=== PATIENT | female | born 1970 | race African-American/Black ===

== ENCOUNTER 2018-09-08 15:34 | Emergency (ER) | payer SELFPAY ==
[~2018-09-08] VITALS: Ht 165.1 cm; Wt 63.5 kg
[~2018-09-08 15:34] MED LIST: ALBUTEROL SULF8.5 GM INH; AMOXICILLIN500 MG ORAL; AZITHROMYCIN250 MG ORAL; CIPROFLOXACIN500 M2 ORAL; NKM; PREDNISONE20 MG ORAL; PROMETHAZINE-C118 M1 ORAL; RANITIDINE HCL150 MG ORAL; ROBITUSSIN COU118 M4 PO
[2018-09-08] MEDS ORDERED: Acetaminophen 500mg (ES) tab ORAL ONE (15:45)
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
--- NOTE | 2018-09-08 15:55 | NUR ---
ED Nurse Note: patient went to xray
--- NOTE | 2018-09-08 16:08 | NUR ---
ED Nurse Note: patient came back from x ray
[2018-09-08 16:11] VITALS: BP 122/76
[2018-09-08] MEDS ORDERED: LIDODERM700 M1 TOPIC (16:25)
[2018-09-08] MEDS ORDERED: TYLENOL EXTRA500 MG ORAL (16:25)
--- NOTE | 2018-09-08 16:30 | NUR ---
ER DISCHARGE NOTE: Patient is cleared to be discharged per MARÍA CARDONA, pt is aox4, on room air, with stable vital signs. pt was given dc and prescription instructions, pt was able to verbalize understanding, pt id band removed without complications. pt is able to ambulate with steady gait. pt took all belongings.ED Nurse Note:
[2018-09-08 16:34] VITALS: BP 122/76
--- NOTE | 2018-09-08 16:57 | Diagnostic Imaging Report ---
Indication: Left sided rib pain. Trauma. Findings: 4 views of the left chest wall was obtained for evaluation of the ribs. There are fractures of the left sixth and seventh ribs in the posterior lateral part. There is no pneumothorax. There is no pleural fluid. IMPRESSION: Acute fractures of the left sixth and seventh ribs.
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
== END 2018-09-08 16:30 | disposition home or self-care (01) ==
LOC: EMR 15:59
DX: S22.42XA Multiple fractures of ribs, left side, initial encounter for closed fracture (principal); Y04.8XXA Assault by other bodily force, initial encounter
CPT/HCPCS: 99283